=== PATIENT | male | born 1995 | race Two or more races ===

== ENCOUNTER 2018-04-16 20:51 | Emergency (ER) | payer SELFPAY ==
[~2018-04-16] VITALS: Ht 185.4 cm; Wt 127.0 kg
[2018-04-16 21:23] VITALS: BP 153/99
== END 2018-04-16 21:44 | disposition left against medical advice (07) ==
LOC: ER 20:51
DX: R21 Rash and other nonspecific skin eruption (principal); L29.9 Pruritus, unspecified; Z53.21 Procedure and treatment not carried out due to patient leaving prior to being seen by health care provider